=== PATIENT | male | born 1995 | race Native Hawaiian/Other Pacific Islander ===

== ENCOUNTER 2019-05-16 16:48 | Emergency (ER) | payer BC, OTHER ==
[~2019-05-16] VITALS: Ht 177.8 cm; Wt 99.8 kg
[2019-05-16 17:12] VITALS: TEMP 98.4
[2019-05-16 18:42] VITALS: BP 132/84
== END 2019-05-16 18:45 | disposition home or self-care (01) ==
LOC: ED 16:48
DX: S60.512A Abrasion of left hand, initial encounter (principal); V89.2XXA Person injured in unspecified motor-vehicle accident, traffic, initial encounter
CPT/HCPCS: 90471; 90715; 96372; 99283; J0696; J7040

== ENCOUNTER 2021-02-17 00:10 | Emergency (ER) | payer BC ==
[~2021-02-17] VITALS: Ht 177.8 cm; Wt 95.3 kg
[2021-02-17 01:04] LABS: PLATELET COUNT 247 K/uL (142-355)
[2021-02-17 01:09] LABS: POTASSIUM 3.8 mmol/L (3.6-5.2); SODIUM 143 mmol/L (136-145)
[2021-02-17 04:55] VITALS: BP 143/92; TEMP 99.6
== END 2021-02-17 04:55 | disposition still patient (30) ==
LOC: ED 00:14
PROVIDERS: Emergency Medicine
DX: R45.851 Suicidal ideations (principal); F10.129 Alcohol abuse with intoxication, unspecified; Y90.6 Blood alcohol level of 120-199 mg/100 ml; Z11.52 Encounter for screening for COVID-19
CPT/HCPCS: 36415; 80053; 80307; 80320; 80329; 81000; 85027; 87635; 93005; 99285; U0003